=== PATIENT | female | born 1975 | race Caucasian/White ===

== ENCOUNTER 2020-09-04 16:31 | Emergency (ER) | payer OTHER ==
[~2020-09-04] VITALS: Ht 162.6 cm; Wt 79.4 kg
[~2020-09-04 16:31] MED LIST: CARISOPRODOL350 MG; DICLOFENAC POTA50 MG; NABUMETONE750 MG; NORFLEX100 MG; [UNRECOGNIZED DRUG - OTHER]; [UNRECOGNIZED DRUG - OTHER]; [UNRECOGNIZED DRUG - OTHER]; [UNRECOGNIZED DRUG - OTHER]
[2020-09-04] MEDS ORDERED: RESTORIL30 MG PO (16:39)
[2020-09-04] MEDS ORDERED: GRALISE600 MG PO (16:40)
[2020-09-04] MEDS ORDERED: GABAPENTIN100 M2 PO (16:41)
[2020-09-04] MEDS ORDERED: LORAZEPAM1 MG PO (16:41)
== END 2020-09-04 19:47 | disposition home or self-care (01) ==
LOC: ER 16:31
DX: R10.13 Epigastric pain (principal); T42.4X5A Adverse effect of benzodiazepines, initial encounter; Y92.89 Other specified places as the place of occurrence of the external cause

== ENCOUNTER → 2020-11-07 | Outpatient (CLI) | payer OTHER ==
[~2020-11-07] MED LIST changes: +GABAPENTIN100 M2 PO; +GRALISE600 MG PO; +LORAZEPAM1 MG PO; +RESTORIL30 MG PO
== END | disposition home or self-care (01) ==
LOC: OFIC 805 10:23
PROVIDERS: ATTEND Otolaryngology
DX: J30.89 Other allergic rhinitis (principal); J34.3 Hypertrophy of nasal turbinates; J34.89 Other specified disorders of nose and nasal sinuses; R13.19 Other dysphagia; E04.2 Nontoxic multinodular goiter

== ENCOUNTER 2021-02-11 08:56 | Outpatient (CLI) | payer OTHER | END 2021-02-11 10:02 | disposition home or self-care (01) | LOC: OFIC 805 08:56 | PROVIDERS: ATTEND Otolaryngology Otology & Neurotology | DX: J34.2 Deviated nasal septum (principal); J30.89 Other allergic rhinitis; J34.3 Hypertrophy of nasal turbinates ==